=== PATIENT | female | born 1955 | race American Indian/Alaskan Native ===

== ENCOUNTER 2019-12-08 12:50 | Emergency (ER) | payer MEDICARE, OTHER ==
[2019-12-08 13:02] VITALS: BP 165/73
--- NOTE | 2019-12-08 13:30 | Emergency Department Report ---
Chief Complaint: Hyperglycemia Stated Complaint: BP HIGH, SUGAR Time Seen by Provider: 12/08/19 13:21 - HPI History of Present Illness: 64-year-old -French female brought in by son concern for elevated blood sugar and elevated blood pressure for a week. Patient's caregiver reports that she recently has a urinary tract infection and has been placed on Cipro for the last 2 days by her primary care provider do a telemedicine appointment. Caregiver is concerned that her blood sugar this morning was 178. She is currently taking metformin and insulin. Is also concern for her blood pressure that was 178/93. She takes her medications as prescribed. She does have a history of diabetes hypertension congestive heart failure GERD had 2 stents replaced hysterectomy a CVA with weakness in the right and right arm and leg and speech impairment. Patient reports that she gets constipated will often have to use a suppository to help. Family denies any recent falls no unusual weaknesses no fever no chills no COVID contact. - Exam Vital Signs: Vital Signs 12/08/19 12:53 Temperature 99.2 F Pulse Rate 81 Respiratory 20 Rate Blood Pressure 165/73 O2 Sat by Pulse 95 Oximetry Physical Exam: Gen: alert oriented NAD Cardic: regular rate and rhythm no murmurs appreciated Resp: Clear to auscultation bilateral no wheezing no rales or rhonchi. Abdomen: Soft nontender nondistended normal bowel sounds. MSE screening note: Focused history and physical exam performed. Due to findings the following was ordered: 64-year-old -French female brought in by son concern for elevated blood sugar and elevated blood pressure for a week. Patient's caregiver reports that she recently has a urinary tract infection and has been placed on Cipro for the last 2 days by her primary care provider do a telemedicine appointment. Caregiver is concerned that her blood sugar this morning was 178. She is currently taking metformin and insulin. Is also concern for her blood pressure that was 178/93. She takes her medications as prescribed. She does have a history of diabetes hypertension congestive heart failure GERD had 2 stents replaced hysterectomy a CVA with weakness in the right and right arm and leg and speech impairment. Patient reports that she gets constipated will often have to use a suppository to help. Family denies any recent falls no unusual weaknesses no fever no chills no COVID contact. Discussed with caregiver to add MiraLAX to her diet set goals to drink water 4 ounces every hour within a 30-minute TV show. Increase her fiber intake. Encourage her to void as much as possible. Avoid sodas tea coffee with sugar. Ambulate as much as possible. Follow-up with her primary care provider in the next 3 to 5 days. Return back to the emergency room if any worsening concerns. ED Disposition for MSE Disposition: MED SCREENING EXAM-LEFT Is pt being admited?: No Does the pt Need Aspirin: No Condition: Stable Additional Instructions: Discussed with caregiver to add MiraLAX to her diet set goals to drink water 4 ounces every hour within a 30-minute TV show. Increase her fiber intake. Encourage her to void as much as possible. Avoid sodas tea coffee with sugar. Ambulate as much as possible. Follow-up with her primary care provider in the next 3 to 5 days. Return back to the emergency room if any worsening concerns. Referrals: JEFFY HARRISON III, NANO-DANILO [Referring] - 3-5 Days Forms: Accompanied Note
== END 2019-12-08 13:33 | disposition left against medical advice (07) ==
LOC: ED 12:50
DX: E11.65 Type 2 diabetes mellitus with hyperglycemia (principal); I10 Essential (primary) hypertension; Z53.21 Procedure and treatment not carried out due to patient leaving prior to being seen by health care provider
CPT/HCPCS: 82962

== ENCOUNTER 2020-04-02 07:10 | Inpatient (IN) | payer MEDICARE, OTHER ==
--- NOTE | 2020-04-02 12:24 | XRay Report ---
CHEST 2 VIEWS INDICATION: sob,cough and rales. COMPARISON: 03/25/2014. FINDINGS: Support devices: None. Heart: Within normal limits. Lungs/Pleura: No acute air space or interstitial disease. No significant pleural effusion. IMPRESSION: No acute findings. Signer Name: Saran Duron MD Signed: 04/02/2020 12:19 PM Workstation Name: [employer]
[2020-04-02 12:28] LABS: Basophils # (Auto) 0.1 K/mm3 (0.0-0.1); Basophils % (Auto) 1.2 % (0.0-1.8); Eosinophils # (Auto) 0.1 K/mm3 (0.0-0.4); Eosinophils % (Auto) 0.8 % (0.0-4.3); Hematocrit 30.3 % (30.3-42.9); Lymphocytes # (Auto) 1.4 K/mm3 (1.2-5.4); Lymphocytes % (Auto) 15.4 % (13.4-35.0); Mean Corpuscular HGB Conc 33 % (30-34); Mean Corpuscular Volume 86 fl (79-97); Monocytes # (Auto) 0.8 K/mm3 (0.0-0.8); Monocytes % (Auto) 9.2 % (0.0-7.3); Platelet Count 266 K/mm3 (140-440); Red Blood Count 3.53 M/mm3 (3.65-5.03); Red Cell Distribution Width 14.7 % (13.2-15.2)
[2020-04-02] MEDS ORDERED: IPRATROPIUM/ALBUTEROL SULFATE 3 ML AMPUL.NEB IH ONE (12:41)
[2020-04-02] MEDS ORDERED: ONDANSETRON 4 MG/2 ML INJ IV ONE (12:41)
[2020-04-02] MEDS ORDERED: methylPREDNISolone Sod Succinate 125 MG/2 ML INJ IV ONE (12:41)
[2020-04-02] MEDS ORDERED: hydrALAZINE 20 MG/1 ML INJ IV ONE (12:42)
--- NOTE | 2020-04-02 13:08 | Emergency Department Report ---
HPI - General Chief Complaint: Dyspnea/Respdistress Time Seen by Provider: 04/02/20 11:54 - HPI HPI: This is a 64-year-old female presents to the emergency department with a complaint of a 1 week history of some intermittent shortness of breath, coughing and wheezing. Patient says that she will have some midsternal chest pain when she coughs. She denies any fever, back pain, diarrhea, rash. She does admit to some swelling of the bilateral feet, nausea with one episode of vomiting. The patient saw her PCP yesterday, Dr. Aftab Holden, and was placed on an albuterol inhaler, which she has been using with only transient relief. She has a past medical history that includes hypertension, [id number] diabetes, GERD, coronary artery disease with previous stents, CVA with residual right-sided weakness and some speech impairment. No recent travel or sick contacts at home. No known exposure to anyone with COVID-19. ED Past Medical Hx - Past Medical History Hx Hypertension: Yes Hx CVA: Yes (Rt arm and leg weakness, speech impairment) Hx Heart Attack/AMI: No Hx Congestive Heart Failure: No Hx Diabetes: Yes Hx Deep Vein Thrombosis: No Hx Pulmonary Embolism: No Hx GERD: Yes Hx Liver Disease: No Hx Renal Disease: No Hx Sickle Cell Disease: No Hx Arthritis: No Hx Seizures: No Hx Kidney Stones: No Hx Asthma: No Hx COPD: No Hx Tuberculosis: No Hx Dementia: No Hx HIV: No - Surgical History Hx Coronary Stent: Yes (X2) Hx Open Heart Surgery: No Hx Pacemaker: No Hx Internal Defibrillator: No Hx Cholecystectomy: No Hx Appendectomy: No Hx Breast Surgery: No Additional Surgical History: Hysterectomy - Social History Smoking Status: Never Smoker Substance Use Type: None - Medications Home Medications: Home Medications Medication Instructions Recorded Confirmed Last Taken Type Aspirin 325 mg PO DAILY 07/04/14 07/08/14 07/08/14 05:00 History Clopidogrel Bisulfate [Plavix] 75 mg PO DAILY 07/04/14 07/08/14 07/08/14 05:00 History Fesoterodine Fumarate [Toviaz] 4 mg PO DAILY 07/04/14 07/08/14 07/08/14 05:00 History Furosemide [Lasix TAB] 20 mg PO DAILY 07/04/14 07/08/14 07/08/14 05:00 History Metformin HCl [metFORMIN ER] 500 mg PO BID 07/04/14 07/08/14 07/06/14 History Omeprazole [PriLOSEC] 20 mg PO DAILY 07/04/14 07/08/14 07/08/14 05:00 History Pravastatin Sodium [Pravastatin] 10 mg PO DAILY 07/04/14 07/08/14 07/08/14 05:00 History Sertraline [Zoloft] 25 mg PO DAILY 07/04/14 07/08/14 07/08/14 05:00 History carvediloL [Coreg] 12.5 mg PO BID 07/04/14 07/08/14 07/08/14 05:00 History glipiZIDE [glipiZIDE XL] 10 mg PO DAILY 07/04/14 07/08/14 07/08/14 05:00 History lisinopriL [Lisinopril] 10 mg PO BID 07/08/14 07/08/14 07/08/14 05:00 History HYDROcodone/ACETAMINOPHEN [[place] 1 each PO Q6HR PRN #30 tablet 07/09/14 Unknown Rx 7.5-325 mg TAB] ED Review of Systems ROS: Stated complaint: BREN Other details as noted in HPI Comment: All other systems reviewed and negative Constitutional: denies: chills, fever Eyes: denies: eye pain, vision change ENT: denies: ear pain, throat pain Respiratory: cough, shortness of breath, wheezing Cardiovascular: edema (feet). denies: palpitations Gastrointestinal: nausea, vomiting. denies: abdominal pain Genitourinary: denies: dysuria, discharge Musculoskeletal: denies: back pain, arthralgia Skin: denies: rash, lesions Neurological: denies: headache, weakness Physical Exam - Physical Exam Vital Signs: Vital Signs 04/02/20 04/02/20 04/02/20 07:25 07:29 12:33 Temperature 97.1 F L Pulse Rate 92 H Respiratory 24 26 H Rate Blood Pressure 188/81 O2 Sat by Pulse 95 96 Oximetry Physical Exam: GENERAL: The patient is well-developed well-nourished. HENT: Normocephalic. Atraumatic. Patient has moist mucous membranes. EYES: Extraocular motions are intact. NECK: Supple. Trachea is midline. CHEST/LUNGS: Coarse breath sounds. There is tachypnea with some conversational dyspnea. HEART/CARDIOVASCULAR: Regular. There is no tachycardia. There is no murmur. ABDOMEN: Abdomen is soft, nontender. Patient has normal bowel sounds. Obese habitus. SKIN: Skin is warm and dry. There is some mild bilateral lower extremity nonpitting swelling. NEURO: The patient is awake, alert, and oriented. The patient is cooperative. Chronic right-sided weakness. Normal speech. MUSCULOSKELETAL: There is no tenderness or deformity. ED Course Vital Signs 04/02/20 04/02/20 04/02/20 07:25 07:29 12:33 Temperature 97.1 F L Pulse Rate 92 H Respiratory 24 26 H Rate Blood Pressure 188/81 O2 Sat by Pulse 95 96 Oximetry - Reevaluation(s) Reevaluation #1: 04/02/20 16:11 Lab Results 04/02/20 04/02/20 04/02/20 Range/Units 11:48 11:48 14:17 WBC 9.0 (4.5-11.0) K/mm3 RBC 3.53 L (3.65-5.03) M/mm3 Hgb 10.0 L (10.1-14.3) gm/dl Hct 30.3 (30.3-42.9) % MCV 86 (79-97) fl MCH 28 (28-32) pg MCHC 33 (30-34) % RDW 14.7 (13.2-15.2) % Plt Count 266 (140-440) K/mm3 Lymph % (Auto) 15.4 (13.4-35.0) % [place] % (Auto) 9.2 H (0.0-7.3) % Eos % (Auto) 0.8 (0.0-4.3) % Baso % (Auto) 1.2 (0.0-1.8) % Lymph # (Auto) 1.4 (1.2-5.4) K/mm3 [place] # (Auto) 0.8 (0.0-0.8) K/mm3 Eos # (Auto) 0.1 (0.0-0.4) K/mm3 Baso # (Auto) 0.1 (0.0-0.1) K/mm3 Seg Neutrophils % 73.4 H (40.0-70.0) % Seg Neutrophils # 6.6 (1.8-7.7) K/mm3 Sodium TNR Potassium TNR Chloride TNR Carbon Dioxide TNR Anion Gap TNR BUN TNR Creatinine TNR Estimated GFR TNR BUN/Creatinine Ratio TNR Glucose TNR Calcium TNR Total Bilirubin TNR AST TNR ALT TNR Alkaline Phosphatase TNR Troponin T < 0.010 (0.00-0.029) ng/mL NT-Pro-B Natriuret Pep 1391 H (0-900) pg/mL Total Protein TNR Albumin TNR Albumin/Globulin Ratio TNR 04/02/20 Range/Units 14:17 WBC (4.5-11.0) K/mm3 RBC (3.65-5.03) M/mm3 Hgb (10.1-14.3) gm/dl Hct (30.3-42.9) % MCV (79-97) fl MCH (28-32) pg MCHC (30-34) % RDW (13.2-15.2) % Plt Count (140-440) K/mm3 Lymph % (Auto) (13.4-35.0) % [place] % (Auto) (0.0-7.3) % Eos % (Auto) (0.0-4.3) % Baso % (Auto) (0.0-1.8) % Lymph # (Auto) (1.2-5.4) K/mm3 [place] # (Auto) (0.0-0.8) K/mm3 Eos # (Auto) (0.0-0.4) K/mm3 Baso # (Auto) (0.0-0.1) K/mm3 Seg Neutrophils % (40.0-70.0) % Seg Neutrophils # (1.8-7.7) K/mm3 Sodium 142 Potassium 4.6 Chloride 102.0 Carbon Dioxide 29 Anion Gap 16 BUN 19 H Creatinine 1.0 Estimated GFR > 60 BUN/Creatinine Ratio 19 Glucose 91 Calcium 9.4 Total Bilirubin 0.30 AST 22 ALT 16 Alkaline Phosphatase 104 Troponin T (0.00-0.029) ng/mL NT-Pro-B Natriuret Pep (0-900) pg/mL Total Protein 7.5 Albumin 3.6 L Albumin/Globulin Ratio 0.9 ED Medical Decision Making - Lab Data Result diagrams: 04/02/20 11:48 04/02/20 14:17 - EKG Data -: EKG Interpreted by Me EKG shows normal: sinus rhythm, axis, intervals, QRS complexes, ST-T waves Rate: normal - EKG Data When compared to previous EKG there are: previous EKG unavailable Interpretation: normal EKG - Radiology Data Radiology results: image reviewed interpreted by me: Chest x-ray does not show any acute process. There are no pleural effusions, ob vious pneumonia and there is no pneumothorax. No significant cardiomegaly. - Medical Decision Making This patient presents to the emergency department with a 1 week history of progressively worsening shortness of breath, wheezing, intermittent chest tightness, and the patient complains of some mild bilateral lower extremity swelling, mostly in the feet. On examination the patient has some coarse breath sounds, tachypnea and conversational dyspnea. There is some mild nonpitting swelling to the bilateral lower extremities. EKG did not have any morphology consistent with ST elevation myocardial infarction. Chest x-ray did not show any pneumonia, obvious pleural effusions, or any pneumothorax. Patient's labs shows elevated BNP of about 1300, without any renal in sufficiency. This is concerning for acute or new onset CHF. Patient has been given Solu-Medrol, breathing treatments, IV Lasix for diuresis. The patient also presented with extremely elevated blood pressure with a systolic greater than 200. She was given a dose of IV antihypertensive medication and it has come down to a more reasonable level. Despite the treatments, the patient continues to have tachypnea and some mild hypoxia with a pulse ox between 92 to 94%. The patient does not have any COPD history and is not oxygen dependent at home. She will be admitted to the hospital for further evaluation and treatment was accepted for admission by the hospitalist, Dr. Rocha. Critical Care Time: No Critical care attestation.: If time is entered above; I have spent that time in minutes in the direct care of this critically ill patient, excluding procedure time. ED Disposition Clinical Impression: New onset of congestive heart failure, Hypertensive urgency Dyspnea Qualifiers: Dyspnea type: shortness of breath Qualified Code(s): R06.02 - Shortness of breath; R06.00 - Dyspnea, unspecified; R06.01 - Orthopnea Disposition: OP ADMIT IP TO THIS HOSP Is pt being admited?: Yes Condition: Fair Time of Disposition: 16:15
[2020-04-02] MEDS ORDERED: SODIUM POLYSTYRENE 15 GM/60 ML ORAL LIQD PO ONE (14:01)
[2020-04-02 14:12] LABS: Blood Urea Nitrogen TNR mg/dL (7-17)
[2020-04-02 14:13] LABS: Alanine Aminotransferase TNR units/L (7-56); Calcium TNR mg/dL (8.4-10.2)
[2020-04-02 14:14] LABS: Albumin TNR g/dL (3.9-5); Hemolysis Index TNR
[2020-04-02 14:15] LABS: BUN/Creatinine Ratio TNR
[2020-04-02 15:31] LABS: Alanine Aminotransferase 16 units/L (7-56); Albumin 3.6 g/dL (3.9-5); BUN/Creatinine Ratio 19; Blood Urea Nitrogen 19 mg/dL (7-17); Calcium 9.4 mg/dL (8.4-10.2); Hemolysis Index 14
[2020-04-02] MEDS ORDERED: FUROSEMIDE 20 MG/2 ML INJ IV ONE (15:52)
--- NOTE | 2020-04-02 16:26 | History and Physical Report ---
History of Present Illness Chief complaint: I get short of breath real easy History of present illness: 64 YO Female with HTN, CVA with RHP and Dysarthria on DAPT, DM, GERD, CAD S/P Stent Placement presents to ED for evaluation. Patient states that she has experienced shortness of breath over the past 1 week with persistently worsening symptoms over the same timeframe. Patient acknowledges leg swelling, orthopnea, paroxysmal nocturnal dyspnea, decreased exercise tolerance, as well as chest discomfort. Patient transported to [facility] via private vehicle for further care and evaluation of the aforementioned symptoms. Patient seen and evaluated in the emergency department. All lab and imaging studies reviewed. Patient found to have clinical symptoms consistent with new onset CHF with decompensation, as well as hypertensive urgency with a blood pressure of 225/80. Patient initiated on antihypertensive therapy and admitted to telemetry and initiated on CHF protocol. Cardiology team consulted in ED. Patient denies fever, chills, chest pain, palpitations, productive cough, skin rash, recent ill contacts, or known exposure to COVID-19. No prior admission for review. All medication listed at time of admission has been reconciled. Advanced care planning conducted in ED. Past History Past Medical History: CAD, diabetes, hypertension, stroke, other (See HPI) Past Surgical History: hysterectomy, Other (Cardiac stent placement) Social history: . denies: smoking, alcohol abuse Family history: diabetes, hypertension Medications and Allergies Allergies Allergy/AdvReac Type Severity Reaction Status Date / Time codeine Allergy Intermediate Itching Verified 04/02/20 07:20 Home Medications Medication Instructions Recorded Confirmed Last Taken Type Aspirin 81 mg PO DAILY 07/04/14 04/02/20 04/01/20 History Furosemide [Lasix TAB] 20 mg PO DAILY 07/04/14 04/02/20 04/01/20 History Metformin HCl [metFORMIN ER] 500 mg PO BID 07/04/14 04/02/20 04/01/20 History Omeprazole [PriLOSEC] 40 mg PO DAILY 07/04/14 04/02/20 04/01/20 History Sertraline [Zoloft] 25 mg PO DAILY 07/04/14 04/02/20 04/01/20 History carvediloL [Coreg] 12.5 mg PO BID 07/04/14 04/02/20 04/01/20 History glipiZIDE [glipiZIDE XL] 10 mg PO DAILY 07/04/14 04/02/20 04/01/20 History lisinopriL [Lisinopril] 20 mg PO BID 07/08/14 04/02/20 04/01/20 History Ferrous Sulfate [Iron 325 MG] 325 mg PO DAILY 04/02/20 04/02/20 04/01/20 History Insulin Glargine [Lantus VIAL] 24 unit SUB-Q QHS 04/02/20 04/02/20 04/01/20 His tory Mirabegron [Myrbetriq] 50 mg PO QDAY 04/02/20 04/02/20 04/01/20 History amLODIPine [Norvasc] 10 mg PO DAILY 04/02/20 04/02/20 Unknown History Review of Systems Constitutional: no weight loss, no weight gain, no fever, no chills Ears, nose, mouth and throat: no ear pain, no ear discharge, no tinnitis, no decreased hearing, no nose pain Breasts: no change in shape, no swelling, no mass Cardiovascular: orthopnea, edema, shortness of breath, dyspnea on exertion, paroxysmal nocturnal dyspnea, leg edema, decreased exercise tolerance, no chest pain, no palpitations, no rapid/irregular heart beat Respiratory: no cough, no cough with sputum, no excessive sputum Gastrointestinal: no abdominal pain, no nausea, no vomiting, no diarrhea Genitourinary Female: no pelvic pain, no flank pain, no dysuria, no urinary frequency, no urgency Rectal: no pain, no incontinence, no bleeding Musculoskeletal: no neck stiffness, no neck pain, no arm numbness/tingling, no shooting leg pain Integumentary: no rash, no pruritis, no redness, no sores, no wounds Neurological: no head injury, no transient paralysis, no paralysis, no weakness, no numbness, no tingling Psychiatric: no anxiety, no memory loss, no change in sleep habits, no insomnia, no hypersomnia, no change in libido Endocrine: no cold intolerance, no heat intolerance, no excessive thirst, no polyuria Hematologic/Lymphatic: no easy bruising, no easy bleeding, no lymphadenopathy Allergic/Immunologic: no urticaria, no allergic rhinitis, no wheezing, no persistent infections, no anaphylaxis Exam - Constitutional Vitals: Temp Pulse Resp BP Pulse Ox 97.1 F L 97 H 31 H 167/70 93 04/02/20 07:29 04/02/20 15:31 04/02/20 15:31 04/02/20 15:31 04/02/20 15:31 General appearance: Present: mild distress, obese - EENT Eyes: Present: PERRL ENT: hearing intact, clear oral mucosa - Neck Neck: Present: supple, normal ROM - Respiratory Respiratory effort: normal Respiratory: bilateral: diminished, rales - Cardiovascular Heart Sounds: Present: S1 & S2. Absent: rub, click - Extremities Extremities: pulses symmetrical Extremity abnormal: edema Peripheral Pulses: within normal limits - Abdominal General gastrointestinal: Present: soft, non-tender, non-distended, normal bowel sounds Female genitourinary: Present: normal - Integumentary Integumentary: Present: clear, warm, dry - Musculoskeletal Musculoskeletal: gait normal, strength equal bilaterally - Psychiatric Psychiatric: appropriate mood/affect, intact judgment & insight - Neurologic Neurologic: CNII-XII intact, moves all extremities HEART Score - HEART Score Troponin: Troponin T < 0.010 ng/mL (0.00-0.029) 04/02/20 14:17 Results - Labs CBC & Chem 7: 04/02/20 11:48 04/02/20 14:17 Labs: Abnormal lab results 04/02/20 04/02/20 04/02/20 Range/Units 11:48 14:17 14:17 RBC 3.53 L (3.65-5.03) M/mm3 Hgb 10.0 L (10.1-14.3) gm/dl [place] % (Auto) 9.2 H (0.0-7.3) % Seg Neutrophils % 73.4 H (40.0-70.0) % BUN 19 H (7-17) mg/dL NT-Pro-B Natriuret Pep 1391 H (0-900) pg/mL Albumin 3.6 L (3.9-5) g/dL Assessment and Plan - Patient Problems (1) New onset of congestive heart failure Current Visit: Yes Status: Acute Plan to address problem: CHF protocol: Strict I/O, monitor urine output every shift, daily weight, afterload reduction, blood pressure control, echocardiogram ordered and is pending at time of admission, thyroid panel, magnesium level, supplemental oxygen. (2) Obesity hypoventilation syndrome Current Visit: Yes Status: Acute Plan to address problem: Balanced diet, increase physical activity at discharge, supplemental oxygen, noninvasive positive pressure ventilation as clinically indicated, outpatient pulmonary follow-up for sleep study. (3) Hypertensive urgency Current Visit: Yes Status: Acute Plan to address problem: Monitor blood pressure every shift, continue medical management, resume prehospital antihypertensive therapy, (4) DVT prophylaxis Current Visit: No Status: Acute Plan to address problem: SCD to bilateral lower extremities while in bed, patient is ambulatory. (5) Advance care planning Current Visit: Yes Status: Acute Plan to address problem: Disease education conducted, patient is full code, care plan discussed, prognosis discussed, patient knowledges understanding and agreement with care plan, +30 minutes.
[2020-04-02] MEDS ORDERED: ONDANSETRON 4 MG/2 ML INJ IV PRN (16:28)
[2020-04-02] MEDS ORDERED: ACETAMINOPHEN 325 MG TAB PO PRN (16:28)
[2020-04-02] MEDS ORDERED: ALBUTEROL 2.5 MG/3 ML NEBU IH PRN (16:28)
[2020-04-02] MEDS: FUROSEMIDE 20 MG/2 ML INJ IV SCH (17:32)
[2020-04-02] MEDS: amLODIPine 10 MG TAB PO SCH (19:18)
[2020-04-02] MEDS ORDERED: carvediloL 12.5 MG TAB PO STA (20:31)
[2020-04-02] MEDS ORDERED: carvediloL 6.25 MG TAB ONE (20:33)
[2020-04-02] MEDS ORDERED: carvediloL 3.125 MG TAB ONE (20:33)
[2020-04-02] MEDS: LISINOPRIL 20 MG TAB PO SCH (20:37)
[2020-04-02] MEDS ORDERED: carvediloL 12.5 MG TAB PO SCH (22:00)
[2020-04-02] MEDS ORDERED: LISINOPRIL 10 MG TAB PO SCH (22:00)
[2020-04-02] MEDS: HYDROcodone/ACETAMINOPHEN 7.5-325MG TAB PO PRN (22:26)
[2020-04-02] MEDS: carvediloL 12.5 MG TAB PO SCH (22:27)
[2020-04-02] MEDS: PRAVASTATIN 20 MG TAB PO SCH (22:27)
[2020-04-02] MEDS: INSULIN GLARGINE 100 UNITS/ML SUB-Q SCH (22:33)
[2020-04-03 06:26] LABS: Basophils # (Auto) 0.1 K/mm3 (0.0-0.1); Basophils % (Auto) 0.7 % (0.0-1.8); Hematocrit 27.4 % (30.3-42.9); Lymphocytes # (Auto) 1.1 K/mm3 (1.2-5.4); Lymphocytes % (Auto) 12.5 % (13.4-35.0); Mean Corpuscular HGB Conc 33 % (30-34); Mean Corpuscular Volume 86 fl (79-97); Monocytes # (Auto) 0.4 K/mm3 (0.0-0.8); Monocytes % (Auto) 5.1 % (0.0-7.3); Platelet Count 265 K/mm3 (140-440); Red Blood Count 3.18 M/mm3 (3.65-5.03); Red Cell Distribution Width 14.9 % (13.2-15.2)
[2020-04-03 06:27] LABS: BUN/Creatinine Ratio 20; Blood Urea Nitrogen 22 mg/dL (7-17); Calcium 9.1 mg/dL (8.4-10.2); Hemolysis Index 5
[2020-04-03] MEDS: FUROSEMIDE 20 MG/2 ML INJ IV SCH (07:31)
[2020-04-03] MEDS ORDERED: FESOTERODINE FUMARATE 4 MG PO SCH (10:00)
[2020-04-03] MEDS ORDERED: NON-FORMULARY EACH (Pravastatin Sodium [Pravastatin] 10 MG) PO SCH (10:00)
[2020-04-03] MEDS ORDERED: NON-FORMULARY EACH (Omeprazole [Prilosec] 20 MG) PO SCH (10:00)
[2020-04-03] MEDS ORDERED: NON-FORMULARY EACH (Mirabegron [Myrbetriq] 50 MG) PO SCH (10:00)
[2020-04-03] MEDS: ASPIRIN 325 MG TAB PO SCH (10:39)
[2020-04-03] MEDS: CLOPIDOGREL 75 MG TAB PO SCH (10:40)
[2020-04-03] MEDS: FERROUS SULFATE 325 MG TAB PO SCH (10:40)
[2020-04-03] MEDS: amLODIPine 10 MG TAB PO SCH (10:40)
[2020-04-03] MEDS: PANTOPRAZOLE 20 MG TAB PO SCH (10:40)
[2020-04-03] MEDS: carvediloL 12.5 MG TAB PO SCH ×2 (10:41→22:11)
[2020-04-03] MEDS: LISINOPRIL 20 MG TAB PO SCH (10:41)
[2020-04-03] MEDS: SERTRALINE 25 MG TAB PO SCH (10:41)
--- NOTE | 2020-04-03 11:28 | Consultation ---
<ANGELICA HINOJOSA - Last Filed: 04/03/20 11:43> History of Present Illness Consult date: 04/03/20 Consult reason: congestive heart failure History of present illness: This is a 64-year old F with a history of hypertension, prior CVA with right sided residual, diabetes and carotid stenosis. She also has a history of multi- vessel coronary artery disease. Serial echocardiogram shows a normal left ventricular systolic function, ejection fraction 60%. Patient presents to this hospital and admitted with shortness of breath, wheezing and cough. Patient denies fever. There is no chest pain, no palpitation or no lower extremity edema. Chest x-ray is negative. ECG is sinus rhythm with non-specific T wave abnormalities. Past History Past Medical History: CAD, diabetes, hypertension, stroke Past Surgical History: hysterectomy Social history: . denies: smoking, alcohol abuse Family history: diabetes, hypertension Medications and Allergies Allergies Allergy/AdvReac Type Severity Reaction Status Date / Time codeine Allergy Intermediate Itching Verified 04/02/20 07:20 Home Medications Medication Instructions Recorded Confirmed Last Taken Type Aspirin 81 mg PO DAILY 07/04/14 04/02/20 04/01/20 History Furosemide [Lasix TAB] 20 mg PO DAILY 07/04/14 04/02/20 04/01/20 History Metformin HCl [metFORMIN ER] 500 mg PO BID 07/04/14 04/02/20 04/01/20 History Omeprazole [PriLOSEC] 40 mg PO DAILY 07/04/14 04/02/20 04/01/20 History Sertraline [Zoloft] 25 mg PO DAILY 07/04/14 04/02/20 04/01/20 History carvediloL [Coreg] 12.5 mg PO BID 07/04/14 04/02/20 04/01/20 History glipiZIDE [glipiZIDE XL] 10 mg PO DAILY 07/04/14 04/02/20 04/01/20 History lisinopriL [Lisinopril] 20 mg PO BID 07/08/14 04/02/20 04/01/20 History Ferrous Sulfate [Iron 325 MG] 325 mg PO DAILY 04/02/20 04/02/20 04/01/20 History Insulin Glargine [Lantus VIAL] 24 unit SUB-Q QHS 04/02/20 04/02/20 04/01/20 History Mirabegron [Myrbetriq] 50 mg PO QDAY 04/02/20 04/02/20 04/01/20 History amLODIPine [Norvasc] 10 mg PO DAILY 04/02/20 04/02/20 Unknown History Active Meds: Active Medications Acetaminophen (Tylenol) 650 mg PO Q4H PRN PRN Reason: Pain MILD(1-3)/Fever >100.5/GREY Hydrocodone Bitart/Acetaminophen ([place] 7.5/325) 1 each PO Q6HR PRN PRN Reason: Pain, Moderate (4-6) Last Admin: 04/02/20 22:26 Dose: 1 each Documented by: Albuterol (Proventil) 2.5 mg IH Q4HRT PRN PRN Reason: Shortness Of Breath Amlodipine Besylate (Amlodipine) 10 mg PO DAILY [facility] Last Admin: 04/03/20 10:40 Dose: 10 mg Documented by: Aspirin (Aspirin) 325 mg PO DAILY [facility] Last Admin: 04/03/20 10:39 Dose: 325 mg Documented by: Carvedilol (Coreg) 12.5 mg PO BID [facility] Last Admin: 04/03/20 10:41 Dose: 12.5 mg Documented by: Clopidogrel Bisulfate (Plavix) 75 mg PO DAILY [facility] Last Admin: 04/03/20 10:40 Dose: 75 mg Documented by: Ferrous Sulfate (Feosol) 325 mg PO DAILY [facility] Last Admin: 04/03/20 10:40 Dose: 325 mg Documented by: Furosemide (Lasix) 20 mg IV BID@0600,1800 [facility] Last Admin: 04/03/20 07:31 Dose: 20 mg Documented by: Insulin Glargine (Lantus) 24 units SUB-Q QHS [facility] Last Admin: 04/02/20 22:33 Dose: 24 units Documented by: Lisinopril (Zestril) 20 mg PO QDAY [facility] Last Admin: 04/03/20 10:41 Dose: 20 mg Documented by: Miscellaneous Medication (Fesoterodine Fumarate [Toviaz]) 4 mg PO DAILY [facility] Miscellaneous Medication (Mirabegron [Myrbetriq]) 50 mg PO QDAY [facility] Ondansetron HCl (Zofran) 4 mg IV Q8H PRN PRN Reason: Nausea And Vomiting Pantoprazole Sodium (Protonix) 20 mg PO QDAY [facility] Last Admin: 04/03/20 10:40 Dose: 20 mg Documented by: Pravastatin Sodium (Pravachol) 10 mg PO QHS [facility] Last Admin: 04/02/20 22:27 Dose: 10 mg Documented by: Sertraline HCl (Zoloft) 25 mg PO DAILY [facility] Last Admin: 04/03/20 10:41 Dose: 25 mg Documented by: Sodium Chloride (Sodium Chloride Flush Syringe 10 Ml) 10 ml IV BID [facility] Last Admin: 04/03/20 10:42 Dose: 10 ml Documented by: Sodium Chloride (Sodium Chloride Flush Syringe 10 Ml) 10 ml IV PRN PRN PRN Reason: LINE FLUSH Review of Systems Cardiovascular: no chest pain, no palpitations, no edema Respiratory: cough, shortness of breath, congestion, wheezing Physical Examination Vital Signs Pulse Resp BP Pulse Ox 92 H 24 188/81 95 04/02/20 07:25 04/02/20 07:25 04/02/20 07:25 04/02/20 07:25 General appearance: no acute distress HEENT: Positive: PERRL Neck: Positive: trachea midline Cardiac: Positive: Reg Rate and Rhythm Lungs: Positive: Decreased Breath Sounds, Wheezes Neuro: Positive: Weakness (with right sided residual) Extremities: Absent: edema Results 04/03/20 04:00 04/03/20 04:00 Cardiac Enzymes 04/02/20 04/02/20 Range/Units 11:48 14:17 AST TNR 22 CBC 04/02/20 04/03/20 Range/Units 11:48 04:00 WBC 9.0 8.5 (4.5-11.0) K/mm3 RBC 3.53 L 3.18 L (3.65-5.03) M/mm3 Hgb 10.0 L 9.0 L (10.1-14.3) gm/dl Hct 30.3 27.4 L (30.3-42.9) % Plt Count 266 265 (140-440) K/mm3 Lymph # (Auto) 1.4 1.1 L (1.2-5.4) K/mm3 Long # (Auto) 0.8 0.4 (0.0-0.8) K/mm3 Eos # (Auto) 0.1 0.0 (0.0-0.4) K/mm3 Baso # (Auto) 0.1 0.1 (0.0-0.1) K/mm3 Comprehensive Metabolic Panel 04/02/20 04/02/20 04/03/20 Range/Units 11:48 14:17 04:00 Sodium TNR 142 137 Potassium TNR 4.6 4.2 Chloride TNR 102.0 97.5 L Carbon Dioxide TNR 29 33 H BUN TNR 19 H 22 H Creatinine TNR 1.0 1.1 Glucose TNR 91 208 H Calcium TNR 9.4 9.1 AST TNR 22 ALT TNR 16 Alkaline Phosphatase TNR 104 Total Protein TNR 7.5 Albumin TNR 3.6 L Assessment and Plan Shortness of breath with active wheezing and cough echo this presentation reports normal LVEF 55-60% Hx of CAD Hx of Carotid stenosis with prior right CEA Essential Hypertension Prior CVA Recommendations: Resume medical therapy for coronary artery disease. Defer to pulmonary for management of the patient's shortness of breath, wheezing and cough. <SHERICE ANDRADE - Last Filed: 04/04/20 12:43> History of Present Illness History of present illness: I SAW THIS PT & AGREE WITH THE Dx & Tx PLAN. Medications and Allergies Active Meds: Active Medications Acetaminophen (Tylenol) 650 mg PO Q4H PRN PRN Reason: Pain MILD(1-3)/Fever >100.5/GREY Hydrocodone Bitart/Acetaminophen ([place] 7.5/325) 1 each PO Q6HR PRN PRN Reason: Pain, Moderate (4-6) Last Admin: 04/02/20 22:26 Dose: 1 each Documented by: Albuterol (Albuterol 2.5 Mg/3 Ml Nebu) 2.5 mg IH Q6HRT [facility] Last Admin: 04/04/20 08:56 Dose: 2.5 mg Documented by: Amlodipine Besylate (Amlodipine) 10 mg PO DAILY [facility] Last Admin: 04/04/20 09:08 Dose: 10 mg Documented by: Aspirin (Aspirin) 325 mg PO DAILY [facility] Last Admin: 04/04/20 09:07 Dose: 325 mg Documented by: Carvedilol (Coreg) 12.5 mg PO BID [facility] Last Admin: 04/04/20 09:07 Dose: 12.5 mg Documented by: Clopidogrel Bisulfate (Plavix) 75 mg PO DAILY [facility] Last Admin: 04/04/20 09:07 Dose: 75 mg Documented by: Ferrous Sulfate (Feosol) 325 mg PO DAILY [facility] Last Admin: 04/04/20 09:07 Dose: 325 mg Documented by: Insulin Glargine (Lantus) 24 units SUB-Q QHS [facility] Last Admin: 04/03/20 22:12 Dose: 24 units Documented by: Lisinopril (Zestril) 20 mg PO QDAY [facility] Last Admin: 04/04/20 09:08 Dose: 20 mg Documented by: Miscellaneous Medication (Fesoterodine Fumarate [Toviaz]) 4 mg PO DAILY [facility] Miscellaneous Medication (Mirabegron [Myrbetriq]) 50 mg PO QDAY [facility] Ondansetron HCl (Zofran) 4 mg IV Q8H PRN PRN Reason: Nausea And Vomiting Pantoprazole Sodium (Pantoprazole 20 Mg Tab) 20 mg PO QDAC [facility] Pravastatin Sodium (Pravachol) 10 mg PO QHS [facility] Last Admin: 04/03/20 22:11 Dose: 10 mg Documented by: Prednisone (Prednisone 20 Mg Tab) 40 mg PO QDAY [facility] Last Admin: 04/04/20 09:08 Dose: 40 mg Documented by: Sertraline HCl (Zoloft) 25 mg PO DAILY [facility] Last Admin: 04/04/20 09:07 Dose: 25 mg Documented by: Sodium Chloride (Sodium Chloride Flush Syringe 10 Ml) 10 ml IV BID [facility] Last Admin: 04/04/20 09:09 Dose: 10 ml Documented by: Sodium Chloride (Sodium Chloride Flush Syringe 10 Ml) 10 ml IV PRN PRN PRN Reason: LINE FLUSH Physical Examination Vital Signs Pulse Resp BP Pulse Ox 92 H 24 188/81 95 04/02/20 07:25 04/02/20 07:25 04/02/20 07:25 04/02/20 07:25 Results 04/03/20 04:00 04/03/20 04:00
--- NOTE | 2020-04-03 14:45 | Progress Note ---
Assessment and Plan Acute asthma exacerbation -Continue scheduled nebulizer breathing treatment, and steroid -Consult pulmonary, will also rule out for COVID-19 Acute on chronic diastolic CHF - s/p lasix, 2d eho showed preserved EF - encouraged for tight BP control Hypertensive urgency, continue to monitor blood pressure every 8 hour -Resume home meds and adjust medications as needed History of coronary artery disease, continue home meds History of carotid stenosis status post prior right CEA -Continue aspirin and statin Prior CVA with right-sided hemiparesis, continue aspirin and statin Morbid obesity, weight reduction diet recommendation when clinically stable DVT prophylaxis, Lovenox 04/03: 2D echo showed preserved EF, consult pulmonary for possible asthma exacerbation. Continue current management and plan. Rule out for COVID-19. Subjective Date of service: 04/03/20 Interval history: Patient seen and examined. Medical records and medication list reviewed. No acute event overnight noted by the RN. Patient c/o difficulty breathing on resting. Patient is tolerating diet. pending COVID 19 Discussed plan of care at bedside with patient. Objective - Exam Narrative Exam: GENERAL: well-developed and morbidly obese AAF with a wound lying on bed appeared to be in no discomfort. HEENT: Normocephalic. Atraumatic. No conjunctival congestion or icterus. Patient has moist mucous membranes. NECK: Supple. Trachea midline. CHEST/LUNGS: wheezes auscultated bilaterally, breathing nonlabored. No crackles or rhonchi. HEART/CARDIOVASCULAR: Regular in rate and rhythm. S1 and S2 positive. ABDOMEN: Abdomen is soft, nontender. Patient has normal bowel sounds. SKIN: There is no rash. Warm and dry. NEURO: right sided hameparesis. Follows command. MUSCULOSKELETAL: No joint effusion or tenderness. EXTRIMITY: No edema, no cyanosis or clubbing. PSYCH: Cooperative. - Constitutional Vitals: Vital Signs - 12hr 04/03/20 04/03/20 04/03/20 04:15 04:35 07:44 Temperature 97.3 F L 97.8 F Pulse Rate 83 80 78 Respiratory 20 18 Rate Blood Pressure 133/61 146/64 O2 Sat by Pulse 98 100 Oximetry 04/03/20 04/03/20 04/03/20 10:40 10:41 12:00 Temperature 96.8 F L Pulse Rate 78 78 83 Respiratory 18 Rate Blood Pressure 146/64 146/64 149/61 O2 Sat by Pulse 100 Oximetry - Labs CBC & Chem 7: 04/03/20 04:00 04/03/20 04:00 Labs: Abnormal lab results 04/02/20 04/02/20 04/02/20 Range/Units 14:17 14:17 18:23 RBC (3.65-5.03) M/mm3 Hgb (10.1-14.3) gm/dl Hct (30.3-42.9) % Lymph % (Auto) (13.4-35.0) % Lymph # (Auto) (1.2-5.4) K/mm3 Seg Neutrophils % (40.0-70.0) % Chloride (98-107) mmol/L Carbon Dioxide (22-30) mmol/L BUN 19 H (7-17) mg/dL Glucose (65-100) mg/dL POC Glucose 206 H (70-105) mg/dL NT-Pro-B Natriuret Pep 1391 H (0-900) pg/mL Albumin 3.6 L (3.9-5) g/dL 04/02/20 04/03/20 04/03/20 Range/Units 22:13 04:00 04:00 RBC 3.18 L (3.65-5.03) M/mm3 Hgb 9.0 L (10.1-14.3) gm/dl Hct 27.4 L (30.3-42.9) % Lymph % (Auto) 12.5 L (13.4-35.0) % Lymph # (Auto) 1.1 L (1.2-5.4) K/mm3 Seg Neutrophils % 81.7 H (40.0-70.0) % Chloride 97.5 L (98-107) mmol/L Carbon Dioxide 33 H (22-30) mmol/L BUN 22 H (7-17) mg/dL Glucose 208 H (65-100) mg/dL POC Glucose 308 H (70-105) mg/dL NT-Pro-B Natriuret Pep (0-900) pg/mL Albumin (3.9-5) g/dL HEART Score - HEART Score Troponin: Troponin T < 0.010 ng/mL (0.00-0.029) 04/02/20 14:17
[2020-04-03] MEDS: predniSONE 20 MG TAB PO SCH (18:54)
[2020-04-03] MEDS: ALBUTEROL 2.5 MG/3 ML NEBU IH SCH ×2 (20:40→21:45)
[2020-04-03] MEDS: PRAVASTATIN 20 MG TAB PO SCH (22:11)
[2020-04-03] MEDS: INSULIN GLARGINE 100 UNITS/ML SUB-Q SCH (22:12)
[2020-04-03 22:43] LABS: Amphetamine Screen,Urine Negative; Benzodiazepines Screen,Urine Negative; Cannabinoid Screen,Urine Negative; Cocaine Screen,Urine Negative; Methadone Screen,Urine Negative; Opiate Screen,Urine Negative
[2020-04-04] MEDS: ALBUTEROL 2.5 MG/3 ML NEBU IH SCH ×5 (01:00→21:52)
[2020-04-04] MEDS: ASPIRIN 325 MG TAB PO SCH (09:07)
[2020-04-04] MEDS: carvediloL 12.5 MG TAB PO SCH ×2 (09:07→21:52)
[2020-04-04] MEDS: PANTOPRAZOLE 20 MG TAB PO SCH (09:07)
[2020-04-04] MEDS: CLOPIDOGREL 75 MG TAB PO SCH (09:07)
[2020-04-04] MEDS: SERTRALINE 25 MG TAB PO SCH (09:07)
[2020-04-04] MEDS: FERROUS SULFATE 325 MG TAB PO SCH (09:07)
[2020-04-04] MEDS: predniSONE 20 MG TAB PO SCH (09:08)
[2020-04-04] MEDS: amLODIPine 10 MG TAB PO SCH (09:08)
[2020-04-04] MEDS: LISINOPRIL 20 MG TAB PO SCH (09:08)
--- NOTE | 2020-04-04 09:38 | Progress Note ---
<ANGELICA HINOJOSA - Last Filed: 04/04/20 09:38> Assessment and Plan Shortness of breath with active wheezing and cough echo this presentation reports normal LVEF 55-60% Hx of CAD Hx of Carotid disease with prior right CEA Essential Hypertension Prior CVA Recommendations: Continue medical therapy for coronary artery disease. Defer to pulmonary and primary team for management of the patient's shortness of breath, wheezing and cough. Subjective Date of service: 04/04/20 Interval history: Patient reports her breathing is improving. Denies chest pain and denies palpitations. Objective Vital Signs Temp Pulse Pulse Pulse Resp Resp BP 04/04/20 09:08 75 161/61 04/04/20 09:07 75 161/61 04/04/20 08:56 84 20 04/04/20 08:27 98.4 F 75 161/61 04/04/20 03:39 96.9 F L 84 20 152/66 04/04/20 03:32 72 18 04/04/20 00:24 98.1 F 84 18 150/59 04/03/20 22:20 81 18 04/03/20 22:11 81 134/55 04/03/20 22:00 04/03/20 20:54 78 04/03/20 20:05 98.1 F 78 18 134/55 04/03/20 16:56 94 H 17 174/69 04/03/20 15:33 98.5 F 74 18 123/47 04/03/20 12:00 96.8 F L 83 18 149/61 04/03/20 10:41 78 146/64 04/03/20 10:40 78 146/64 Pulse Ox 04/04/20 09:08 04/04/20 09:07 04/04/20 08:56 04/04/20 08:27 94 04/04/20 03:39 97 04/04/20 03:32 04/04/20 00:24 97 04/03/20 22:20 99 04/03/20 22:11 04/03/20 22:00 99 04/03/20 20:54 04/03/20 20:05 96 04/03/20 16:56 04/03/20 15:33 99 04/03/20 12:00 100 04/03/20 10:41 04/03/20 10:40 - Physical Examination General: No Apparent Distress HEENT: Positive: PERRL Neck: Positive: trachea midline Cardiac: Positive: Reg Rate and Rhythm Lungs: Positive: Decreased Breath Sounds Neuro: Positive: Weakness (with right sided residual) Extremities: Absent: edema <SHERICE ANDRADE Last Filed: 04/04/20 12:40> Subjective Interval history: I SAW THIS PT & AGREE WITH THE Dx & Tx PLAN. Objective Vital Signs Temp Pulse Pulse Pulse Resp Resp BP 04/04/20 09:08 75 161/61 04/04/20 09:07 75 161/61 04/04/20 08:56 84 20 04/04/20 08:27 98.4 F 75 161/61 04/04/20 03:39 96.9 F L 84 20 152/66 04/04/20 03:32 72 18 04/04/20 00:24 98.1 F 84 18 150/59 04/03/20 22:20 81 18 04/03/20 22:11 81 134/55 04/03/20 22:00 04/03/20 20:54 78 04/03/20 20:05 98.1 F 78 18 134/55 04/03/20 16:56 94 H 17 174/69 04/03/20 15:33 98.5 F 74 18 123/47 Pulse Ox 04/04/20 09:08 04/04/20 09:07 04/04/20 08:56 04/04/20 08:27 94 04/04/20 03:39 97 04/04/20 03:32 04/04/20 00:24 97 04/03/20 22:20 99 04/03/20 22:11 04/03/20 22:00 99 04/03/20 20:54 04/03/20 20:05 96 04/03/20 16:56 04/03/20 15:33 99
--- NOTE | 2020-04-04 14:04 | Consultation ---
History of Present Illness Consult date: 04/04/20 Past History Past Medical History: CAD, diabetes, hypertension, stroke Past Surgical History: hysterectomy Social history: . denies: smoking, alcohol abuse Family history: diabetes, hypertension Medications and Allergies Allergies Allergy/AdvReac Type Severity Reaction Status Date / Time codeine Allergy Intermediate Itching Verified 04/02/20 07:20 Home Medications Medication Instructions Recorded Confirmed Last Taken Type Aspirin 81 mg PO DAILY 07/04/14 04/02/20 04/01/20 History Furosemide [Lasix TAB] 20 mg PO DAILY 07/04/14 04/02/20 04/01/20 History Metformin HCl [metFORMIN ER] 500 mg PO BID 07/04/14 04/02/20 04/01/20 History Omeprazole [PriLOSEC] 40 mg PO DAILY 07/04/14 04/02/20 04/01/20 History Sertraline [Zoloft] 25 mg PO DAILY 07/04/14 04/02/20 04/01/20 History carvediloL [Coreg] 12.5 mg PO BID 07/04/14 04/02/20 04/01/20 History glipiZIDE [glipiZIDE XL] 10 mg PO DAILY 07/04/14 04/02/20 04/01/20 History lisinopriL [Lisinopril] 20 mg PO BID 07/08/14 04/02/20 04/01/20 History Ferrous Sulfate [Iron 325 MG] 325 mg PO DAILY 04/02/20 04/02/20 04/01/20 History Insulin Glargine [Lantus VIAL] 24 unit SUB-Q QHS 04/02/20 04/02/20 04/01/20 History Mirabegron [Myrbetriq] 50 mg PO QDAY 04/02/20 04/02/20 04/01/20 History amLODIPine [Norvasc] 10 mg PO DAILY 04/02/20 04/02/20 Unknown History Active Meds: Active Medications Acetaminophen (Tylenol) 650 mg PO Q4H PRN PRN Reason: Pain MILD(1-3)/Fever >100.5/GREY Hydrocodone Bitart/Acetaminophen ([place] 7.5/325) 1 each PO Q6HR PRN PRN Reason: Pain, Moderate (4-6) Last Admin: 04/02/20 22:26 Dose: 1 each Documented by: Albuterol (Albuterol 2.5 Mg/3 Ml Nebu) 2.5 mg IH Q6HRT [facility] Last Admin: 04/04/20 08:56 Dose: 2.5 mg Documented by: Amlodipine Besylate (Amlodipine) 10 mg PO DAILY [facility] Last Admin: 04/04/20 09:08 Dose: 10 mg Documented by: Aspirin (Aspirin) 325 mg PO DAILY [facility] Last Admin: 04/04/20 09:07 Dose: 325 mg Documented by: Carvedilol (Coreg) 12.5 mg PO BID [facility] Last Admin: 04/04/20 09:07 Dose: 12.5 mg Documented by: Clopidogrel Bisulfate (Plavix) 75 mg PO DAILY [facility] Last Admin: 04/04/20 09:07 Dose: 75 mg Documented by: Ferrous Sulfate (Feosol) 325 mg PO DAILY [facility] Last Admin: 04/04/20 09:07 Dose: 325 mg Documented by: Insulin Glargine (Lantus) 24 units SUB-Q QHS [facility] Last Admin: 04/03/20 22:12 Dose: 24 units Documented by: Lisinopril (Zestril) 20 mg PO QDAY [facility] Last Admin: 04/04/20 09:08 Dose: 20 mg Documented by: Miscellaneous Medication (Fesoterodine Fumarate [Toviaz]) 4 mg PO DAILY [facility] Miscellaneous Medication (Mirabegron [Myrbetriq]) 50 mg PO QDAY [facility] Ondansetron HCl (Zofran) 4 mg IV Q8H PRN PRN Reason: Nausea And Vomiting Pantoprazole Sodium (Pantoprazole 20 Mg Tab) 20 mg PO QDAC [facility] Pravastatin Sodium (Pravachol) 10 mg PO QHS [facility] Last Admin: 04/03/20 22:11 Dose: 10 mg Documented by: Prednisone (Prednisone 20 Mg Tab) 40 mg PO QDAY [facility] Last Admin: 04/04/20 09:08 Dose: 40 mg Documented by: Sertraline HCl (Zoloft) 25 mg PO DAILY [facility] Last Admin: 04/04/20 09:07 Dose: 25 mg Documented by: Sodium Chloride (Sodium Chloride Flush Syringe 10 Ml) 10 ml IV BID [facility] Last Admin: 04/04/20 09:09 Dose: 10 ml Documented by: Sodium Chloride (Sodium Chloride Flush Syringe 10 Ml) 10 ml IV PRN PRN PRN Reason: LINE FLUSH Physical Examination Vital signs: Vital Signs Pulse Resp BP Pulse Ox 92 H 24 188/81 95 04/02/20 07:25 04/02/20 07:25 04/02/20 07:25 04/02/20 07:25 Results - Laboratory Findings CBC and BMP: 04/03/20 04:00 04/03/20 04:00 Abnormal lab findings: Abnormal Labs 04/02/20 04/02/20 04/02/20 11:48 14:17 14:17 RBC 3.53 L Hgb 10.0 L Hct Lymph % (Auto) [place] % (Auto) 9.2 H Lymph # (Auto) Seg Neutrophils % 73.4 H Chloride Carbon Dioxide BUN 19 H Glucose POC Glucose NT-Pro-B Natriuret Pep 1391 H Albumin 3.6 L 04/02/20 04/02/20 04/03/20 18:23 22:13 04:00 RBC 3.18 L Hgb 9.0 L Hct 27.4 L Lymph % (Auto) 12.5 L [place] % (Auto) Lymph # (Auto) 1.1 L Seg Neutrophils % 81.7 H Chloride Carbon Dioxide BUN Glucose POC Glucose 206 H 308 H NT-Pro-B Natriuret Pep Albumin 04/03/20 04/03/20 04/04/20 04:00 21:25 09:38 RBC Hgb Hct Lymph % (Auto) [place] % (Auto) Lymph # (Auto) Seg Neutrophils % Chloride 97.5 L Carbon Dioxide 33 H BUN 22 H Glucose 208 H POC Glucose 182 H 290 H NT-Pro-B Natriuret Pep Albumin 04/04/20 12:24 RBC Hgb Hct Lymph % (Auto) [place] % (Auto) Lymph # (Auto) Seg Neutrophils % Chloride Carbon Dioxide BUN Glucose POC Glucose 278 H NT-Pro-B Natriuret Pep Albumin
--- NOTE | 2020-04-04 16:22 | Progress Note ---
Assessment and Plan Acute asthma exacerbation -Continue scheduled nebulizer breathing treatment, and steroid -Consulted pulmonary, negative for COVID-19 Acute on chronic diastolic CHF - s/p lasix, 2d eho showed preserved EF - encouraged for tight BP control Hypertensive urgency, continue to monitor blood pressure every 8 hour -Resumed home meds and adjust medications as needed History of coronary artery disease, continue home meds History of carotid stenosis status post prior right CEA -Continue aspirin and statin Prior CVA with right-sided hemiparesis, continue aspirin and statin Morbid obesity, weight reduction diet recommendation when clinically stable DVT prophylaxis, Lovenox 04/03: 2D echo showed preserved EF, consult pulmonary for possible asthma exacerbation. Continue current management and plan. Rule out for COVID-19 04/04: negative for COVID. cont to treat for asthma and bronchitis, follow pulmonary recommendation. if clinically stable possible d/c in the am Subjective Date of service: 04/04/20 Interval history: Patient seen and examined. Medical records and medication list reviewed. No acute event overnight noted by the RN. Patient c/o difficulty breathing on resting. Patient is tolerating diet. negative for COVID 19 Discussed plan of care at bedside with patient. Objective - Exam Narrative Exam: GENERAL: well-developed and morbidly obese AAF with a wound lying on bed dolly eared to be in no discomfort. HEENT: Normocephalic. Atraumatic. No conjunctival congestion or icterus. Patient has moist mucous membranes. NECK: Supple. Trachea midline. CHEST/LUNGS: few wheezes auscultated bilaterally, breathing nonlabored. No crackles or rhonchi. HEART/CARDIOVASCULAR: Regular in rate and rhythm. S1 and S2 positive. ABDOMEN: Abdomen is soft, nontender. Patient has normal bowel sounds. SKIN: There is no rash. Warm and dry. NEURO: right sided hameparesis. Follows command. MUSCULOSKELETAL: No joint effusion or tenderness. EXTRIMITY: No edema, no cyanosis or clubbing. PSYCH: Cooperative. - Constitutional Vitals: Vital Signs - 12hr 04/04/20 04/04/20 04/04/20 08:27 08:56 09:07 Temperature 98.4 F Pulse Rate 75 75 Pulse Rate [ 84 Bilateral Throughout] Respiratory Rate Respiratory 20 Rate [Bilateral Throughout] Blood Pressure 161/61 161/61 O2 Sat by Pulse 94 Oximetry 04/04/20 04/04/20 09:08 11:34 Temperature 98.3 F Pulse Rate 75 67 Pulse Rate [ Bilateral Throughout] Respiratory 20 Rate Respiratory Rate [Bilateral Throughout] Blood Pressure 161/61 146/53 O2 Sat by Pulse 100 Oximetry - Labs CBC & Chem 7: 04/03/20 04:00 04/03/20 04:00 Labs: Abnormal lab results 04/03/20 04/04/20 04/04/20 Range/Units 21:25 09:38 12:24 POC Glucose 182 H 290 H 278 H (70-105) mg/dL 04/04/20 Range/Units 15:57 POC Glucose 259 H (70-105) mg/dL HEART Score - HEART Score Troponin: Troponin T < 0.010 ng/mL (0.00-0.029) 04/02/20 14:17
[2020-04-04] MEDS ORDERED: AZITHROMYCIN 500 MG in SODIUM CHLORIDE 0.9% 250ML 250 ML IV SCH (17:00)
[2020-04-04] MEDS: PRAVASTATIN 20 MG TAB PO SCH (21:52)
[2020-04-04] MEDS: INSULIN GLARGINE 100 UNITS/ML SUB-Q SCH (21:53)
[2020-04-05] MEDS ORDERED: PANTOPRAZOLE 20 MG TAB PO SCH (07:30)
--- NOTE | 2020-04-05 08:31 | Progress Note ---
Assessment and Plan Shortness of breath with active wheezing and cough echo this presentation reports normal LVEF 55-60% Hx of CAD Hx of Carotid disease with prior right CEA Essential Hypertension Prior CVA Recommendations: Continue medical therapy for coronary artery disease. No further inpatient cardiac management is needed Patient can follow-up as outpatient Subjective Date of service: 04/05/20 Principal diagnosis: SOB Interval history: Patient states that her shortness of breath has improved. She is not on oxygen this morning. No events on tele Objective Vital Signs Temp Pulse Pulse Pulse Resp Resp BP 04/05/20 04:55 97.5 F L 66 16 125/44 04/04/20 23:37 98.3 F 77 16 147/62 04/04/20 21:56 04/04/20 21:54 04/04/20 21:52 79 143/51 04/04/20 20:22 98.6 F 79 18 143/51 04/04/20 20:14 74 18 04/04/20 20:00 77 18 04/04/20 19:57 80 04/04/20 15:57 98.9 F 74 20 140/68 04/04/20 11:34 98.3 F 67 20 146/53 04/04/20 09:08 75 161/61 04/04/20 09:07 75 161/61 04/04/20 08:56 84 20 Pulse Ox 04/05/20 04:55 96 04/04/20 23:37 100 04/04/20 21:56 100 04/04/20 21:54 100 04/04/20 21:52 04/04/20 20:22 100 04/04/20 20:14 98 04/04/20 20:00 04/04/20 19:57 04/04/20 15:57 99 04/04/20 11:34 100 04/04/20 09:08 04/04/20 09:07 04/04/20 08:56 100 - Physical Examination General: No Apparent Distress HEENT: Positive: PERRL Neck: Positive: trachea midline Cardiac: Positive: Reg Rate and Rhythm Lungs: Positive: Normal Exam Neuro: Positive: Weakness (with right sided residual) Extremities: Absent: edema
[2020-04-05] MEDS: HYDROcodone/ACETAMINOPHEN 7.5-325MG TAB PO PRN (09:10)
[2020-04-05] MEDS: amLODIPine 10 MG TAB PO SCH (09:33)
[2020-04-05] MEDS: FERROUS SULFATE 325 MG TAB PO SCH (09:33)
[2020-04-05] MEDS: SERTRALINE 25 MG TAB PO SCH (09:34)
[2020-04-05] MEDS: CLOPIDOGREL 75 MG TAB PO SCH (09:34)
[2020-04-05] MEDS: predniSONE 20 MG TAB PO SCH (09:34)
[2020-04-05] MEDS: LISINOPRIL 20 MG TAB PO SCH (09:34)
[2020-04-05] MEDS: carvediloL 12.5 MG TAB PO SCH (09:34)
[2020-04-05] MEDS: ASPIRIN 325 MG TAB PO SCH (09:34)
[2020-04-05] MEDS ORDERED: AZITHROMYCIN 250 MG TAB PO SCH (11:00)
--- NOTE | 2020-04-05 16:17 | Discharge Summary ---
Providers - Providers Date of Admission: 04/02/20 16:29 Date of discharge: 04/05/20 Attending physician: JAZMYN ALLEN 04/02/20 16:28 Consult to Physician [CONS] Routine Comment: Consulting Provider: SHERICE ANDRADE Physician Instructions: Reason For Exam: chf 04/03/20 14:55 Consult to Physician [CONS] Routine Comment: Consulting Provider: TAY RIBERA Physician Instructions: Reason For Exam: possible asthma 04/04/20 08:54 Occupational Therapy Evaluate and Treat [CONS] Routine Comment: Reason For Exam: debility Physical Therapy Evaluation and Treat [CONS] Routine Comment: Reason For Exam: debility Date of last referral: 04/04/20 Primary care physician: NANO HARRISON MD Hospitalization Condition: Fair Pertinent studies: CXR 2d echo Hospital course: Discharge diagnosis: Acute asthma exacerbation -Continue scheduled nebulizer breathing treatment, and steroid -Consulted pulmonary, negative for COVID-19 Acute on chronic diastolic CHF - s/p lasix, 2d eho showed preserved EF - encouraged for tight BP control Hypertensive urgency, continue to monitor blood pressure every 8 hour -Resumed home meds and adjust medications as needed History of coronary artery disease, continue home meds History of carotid stenosis status post prior right CEA -Continue aspirin and statin Prior CVA with right-sided hemiparesis, continue aspirin and statin Morbid obesity, weight reduction diet recommendation when clinically stable DVT prophylaxis, Lovenox 04/03: 2D echo showed preserved EF, consult pulmonary for possible asthma exacerbation. Continue current management and plan. Rule out for COVID-19 04/04: negative for COVID. cont to treat for asthma and bronchitis, follow pulmonary recommendation. if clinically stable possible d/c in the am 04/05: clinically stable, d/c home with PT Disposition: DC/[place]-06 HOME [facility] Time spent for discharge: 34 minutes Core Measure Documentation - Palliative Care Palliative Care/ Comfort Measures: Not Applicable - Core Measures Any of the following diagnoses?: none Exam - Physical Exam Narrative exam: GENERAL: well-developed and morbidly obese AAF with a wound lying on bed appeared to be in no discomfort. HEENT: Normocephalic. Atraumatic. No conjunctival congestion or icterus. Patient has moist mucous membranes. NECK: Supple. Trachea midline. CHEST/LUNGS: no wheezes auscultated bilaterally, breathing nonlabored. No crackles or rhonchi. HEART/CARDIOVASCULAR: Regular in rate and rhythm. S1 and S2 positive. ABDOMEN: Abdomen is soft, nontender. Patient has normal bowel sounds. SKIN: There is no rash. Warm and dry. NEURO: right sided hameparesis. Follows command. MUSCULOSKELETAL: No joint effusion or tenderness. EXTRIMITY: No edema, no cyanosis or clubbing. PSYCH: Cooperative. - Constitutional Vitals: Temp Pulse Resp BP Pulse Ox 99.0 F 68 16 166/58 96 04/05/20 11:43 04/05/20 11:43 04/05/20 11:43 04/05/20 11:43 04/05/20 11:43 Plan Activity: fall precautions Weight Bearing Status: Non-Weight Bearing Diet: low fat, low salt Special Instructions: record daily BP diary Follow up with: NANO HARRISON MD [Primary Care Provider] - 7 Days Prescriptions: Prednisone [predniSONE 5 mg (6-Day Pack, 21 Tabs)] 5 mg PO .TAPER #1 tab.ds.pk Albuterol Mdi (or & Nicu Only) [ProAir HFA Inhaler] 2 puff IH QID PRN #8.5 gram PRN Reason: Shortness Of Breath Azithromycin [Zithromax TAB] 500 mg PO QDAY #4 tablet
[2020-04-05 18:19] VITALS: BP 175/70
== END 2020-04-05 19:27 | disposition home health service (06) | DRG 304 ==
LOC: ED 07:10 → 4A 16:29
PROVIDERS: ADMIT Internal Medicine; ATTEND Internal Medicine
DX: I16.0 Hypertensive urgency (principal); I50.33 Acute on chronic diastolic (congestive) heart failure; E66.2 Morbid (severe) obesity with alveolar hypoventilation; J45.901 Unspecified asthma with (acute) exacerbation; I69.951 Hemiplegia and hemiparesis following unspecified cerebrovascular disease affecting right dominant side; Z68.41 Body mass index [BMI] 40.0-44.9, adult; I11.0 Hypertensive heart disease with heart failure; I25.10 Atherosclerotic heart disease of native coronary artery without angina pectoris; E11.9 Type 2 diabetes mellitus without complications; Z20.828 Contact with and (suspected) exposure to other viral communicable diseases; K21.9 Gastro-esophageal reflux disease without esophagitis; Z90.710 Acquired absence of both cervix and uterus; Z79.82 Long term (current) use of aspirin; Z83.3 Family history of diabetes mellitus; Z82.49 Family history of ischemic heart disease and other diseases of the circulatory system; Z88.5 Allergy status to narcotic agent; Z79.899 Other long term (current) drug therapy
CPT/HCPCS: 36415; 71046; 80048; 80053; 80307; 82962; 83880; 84484; 85025; 93005; 93306; 94640; 94760; 96374; 96375; G0378; A9270-GY; J0360; J0456; J1815; J1940; J2405; J2930; J7050; J7512; U0003

== ENCOUNTER 2021-03-08 17:36 | Emergency (ER) | payer MEDICARE, OTHER ==
[2021-03-08 17:53] VITALS: BP 173/67
[2021-03-08] MEDS ORDERED: IPRATROPIUM 0.02% NEBU 2.5 ML IH ONE (18:03)
[2021-03-08] MEDS ORDERED: ALBUTEROL 2.5 MG/3 ML NEBU IH ONE (18:03)
--- NOTE | 2021-03-08 18:03 | Emergency Department Report ---
ED Shortness of Breath HPI - General Chief Complaint: Dyspnea/Respdistress Stated Complaint: SOB WHEEZING Time Seen by Provider: 03/08/21 17:55 Source: patient, family Mode of arrival: Wheelchair Limitations: Physical Limitation - History of Present Illness Initial Comments: Patient presents secondary shortness of breath. For the last several weeks she has had trouble breathing. Over the last couple of days she has had a productive cough with whitish phlegm. They did a televisit with their primary care physician who suggested that they get a test for coronavirus. The family decided to come here for testing. She states that she is also concerned that she could have pneumonia. The reports that she has had numerous upper respiratory infections. He does not know what is causing her symptoms today. She does have a history of asthma and lung disease. She is never been intubated before. She has been using inhalers at home. Her doctor gave her steroids Tuesday. She just tarted taking them yesterday. There is no pain or swelling in the legs out of the ordinary. She does not have orthopnea. She has no chest pain. There has been no fever or chills reported. She has had no known sick contacts. - Related Data Home Medications Medication Instructions Recorded Confirmed Last Taken Aspirin 81 mg PO DAILY 07/04/14 04/02/20 04/01/20 Furosemide [Lasix TAB] 20 mg PO DAILY 07/04/14 04/02/20 04/01/20 Metformin HCl [metFORMIN ER] 500 mg PO BID 07/04/14 04/02/20 04/01/20 Omeprazole [PriLOSEC] 40 mg PO DAILY 07/04/14 04/02/20 04/01/20 Sertraline [Zoloft] 25 mg PO DAILY 07/04/14 04/02/20 04/01/20 carvediloL [Coreg] 12.5 mg PO BID 07/04/14 04/02/20 04/01/20 glipiZIDE [glipiZIDE XL] 10 mg PO DAILY 07/04/14 04/02/20 04/01/20 lisinopriL [Lisinopril] 20 mg PO BID 07/08/14 04/02/20 04/01/20 Ferrous Sulfate [Iron 325 MG] 325 mg PO DAILY 04/02/20 04/02/20 04/01/20 Insulin Glargine [Lantus VIAL] 24 unit SUB-Q QHS 04/02/20 04/02/20 04/01/20 Mirabegron [Myrbetriq] 50 mg PO QDAY 04/02/20 04/02/20 04/01/20 amLODIPine 10 mg PO DAILY 04/02/20 04/02/20 Unknown Previous Rx's Medication Instructions Recorded Last Taken Type Albuterol Mdi (or & Nicu Only) 2 puff IH QID PRN #8.5 gram 04/05/20 Unknown Rx [ProAir HFA Inhaler] Azithromycin [Zithromax TAB] 500 mg PO QDAY #4 tablet 04/05/20 Unknown Rx Prednisone [predniSONE 5 mg (6-Day 5 mg PO .TAPER #1 tab.ds.pk 04/05/20 Unknown Rx Pack, 21 Tabs)] Benzonatate [Tessalon Perles] 100 mg PO Q8HR #20 capsule 03/08/21 Unknown Rx Allergies Allergy/AdvReac Type Severity Reaction Status Date / Time codeine Allergy Intermediate Itching Verified 04/02/20 07:20 ED Review of Systems ROS: Stated complaint: SOB WHEEZING Other details as noted in HPI Comment: All other systems reviewed and negative Constitutional: denies: fever Eyes: denies: eye pain ENT: denies: throat pain Respiratory: see HPI Cardiovascular: denies: chest pain Endocrine: denies: unexplained weight loss Gastrointestinal: denies: abdominal pain Genitourinary: denies: dysuria Musculoskeletal: denies: back pain Skin: denies: rash Neurological: denies: headache Hematological/Lymphatic: denies: easy bruising ED Past Medical Hx - Past Medical History Previous Medical History?: Yes Hx Hypertension: Yes Hx CVA: Yes (Rt arm and leg weakness, speech impairment) Hx Heart Attack/AMI: No Hx Congestive Heart Failure: No Hx Diabetes: Yes Hx Deep Vein Thrombosis: No Hx Pulmonary Embolism: No Hx GERD: Yes Hx Liver Disease: No Hx Renal Disease: No Hx Sickle Cell Disease: No Hx Arthritis: No Hx Seizures: No Hx Kidney Stones: No Hx Asthma: No Hx COPD: No Hx Tuberculosis: No Hx Dementia: No Hx HIV: No - Surgical History Hx Coronary Stent: Yes (X2) Hx Open Heart Surgery: No Hx Pacemaker: No Hx Internal Defibrillator: No Hx Cholecystectomy: No Hx Appendectomy: No Hx Breast Surgery: No Additional Surgical History: Hysterectomy - Family History Family history: hypertension - Social History Smoking Status: Former Smoker - Medications Home Medications: Home Medications Medication Instructions Recorded Confirmed Last Taken Type Aspirin 81 mg PO DAILY 07/04/14 04/02/20 04/01/20 History Furosemide [Lasix TAB] 20 mg PO DAILY 07/04/14 04/02/20 04/01/20 History Metformin HCl [metFORMIN ER] 500 mg PO BID 07/04/14 04/02/20 04/01/20 History Omeprazole [PriLOSEC] 40 mg PO DAILY 07/04/14 04/02/20 04/01/20 History Sertraline [Zoloft] 25 mg PO DAILY 07/04/14 04/02/20 04/01/20 History carvediloL [Coreg] 12.5 mg PO BID 07/04/14 04/02/20 04/01/20 History glipiZIDE [glipiZIDE XL] 10 mg PO DAILY 07/04/14 04/02/20 04/01/20 History lisinopriL [Lisinopril] 20 mg PO BID 07/08/14 04/02/20 04/01/20 History Ferrous Sulfate [Iron 325 MG] 325 mg PO DAILY 04/02/20 04/02/20 04/01/20 History Insulin Glargine [Lantus VIAL] 24 unit SUB-Q QHS 04/02/20 04/02/20 04/01/20 History Mirabegron [Myrbetriq] 50 mg PO QDAY 04/02/20 04/02/20 04/01/20 History amLODIPine 10 mg PO DAILY 04/02/20 04/02/20 Unknown History Albuterol Mdi (or & Nicu Only) 2 puff IH QID PRN #8.5 gram 04/05/20 Unknown Rx [ProAir HFA Inhaler] Azithromycin [Zithromax TAB] 500 mg PO QDAY #4 tablet 04/05/20 Unknown Rx Prednisone [predniSONE 5 mg (6-Day 5 mg PO .TAPER #1 tab.ds.pk 04/05/20 Unknown Rx Pack, 21 Tabs)] Benzonatate [Tessalon Perles] 100 mg PO Q8HR #20 capsule 03/08/21 Unknown Rx ED Physical Exam - General Limitations: Physical Limitation (Prior stroke), Other General appearance: alert, in distress ( mild) - Head Head exam: Present: atraumatic, normocephalic, normal inspection - Eye Eye exam: Present: normal appearance, EOMI. Absent: scleral icterus - ENT ENT exam: Present: normal exam, normal orophraynx, normal external ear exam - Neck Neck exam: Present: normal inspection. Absent: meningismus - Respiratory Respiratory exam: Present: respiratory distress ( mild), wheezes ( bilateral) - Cardiovascular Cardiovascular Exam: Present: regular rate, normal rhythm - GI/Abdominal GI/Abdominal exam: Present: soft. Absent: tenderness - Extremities Exam Extremities exam: Present: normal capillary refill. Absent: calf tenderness - Back Exam Back exam: Absent: CVA tenderness (R), CVA tenderness (L) - Neurological Exam Neurological exam: Present: alert, oriented X3, CN II-XII intact, other ( residual deficit from prior stroke) - Psychiatric Psychiatric exam: Present: normal affect, normal mood - Skin Skin exam: Present: warm, dry ED Course Vital Signs 03/08/21 03/08/21 17:47 18:23 Temperature 98.7 F Pulse Rate 88 Pulse Rate [ 90 Bilateral Throughout] Respiratory 26 H Rate Respiratory 18 Rate [Bilateral Throughout] Blood Pressure 173/67 [Right] O2 Sat by Pulse 99 Oximetry - Reevaluation(s) Reevaluation #1: 03/08/21 18:02 Albuterol and chest x-ray were ordered Reevaluation #2: 03/08/21 19:45 chest x-ray was noted. Patient was discharged. ED Medical Decision Making - Radiology Data Radiology results: image reviewed interpreted by me: Chest x-ray based on my review reveals no evidence of pneumonia or pneumothorax. Patient does not have cardiomegaly. There is no pulmonary vascular congestion noted. She does not have findings suggestive of coronavirus. Soft tissues appear to be normal. - Medical Decision Making Patient presents with difficulty breathing. She responded well to bronchodilators. She does not appear to be septic or toxic. There is urographic evidence of pneumonia. She does not have radiographic findings suggestive of coronavirus. We have discussed outpatient management and treatment. She has steroids at home and will be continued on those. She can use bronchodilators as needed as well. Critical Care Time: No Critical care attestation.: If time is entered above; I have spent that time in minutes in the direct care of this critically ill patient, excluding procedure time. ED Disposition Clinical Impression: Acute URI Asthma exacerbation Qualifiers: Asthma severity: moderate Asthma persistence: persistent Qualified Code(s): J45.41 - Moderate persistent asthma with (acute) exacerbation Disposition: 01 HOME / SELF CARE / HOMELESS Is pt being admited?: No Condition: Stable Instructions: Viral Respiratory Infection, [id number], Cool Mist Vaporizer, Cough, Adult, [id number], Asthma, Adult, [id number] Additional Instructions: Push fluids. Continue home medication. Return for problems. Follow-up as directed by your regular physician. Take the steroids. Prescriptions: Benzonatate [Tessalon Perles] 100 mg PO Q8HR #20 capsule Referrals: PRIMARY CARE, [Referring] - 3-5 Days
--- NOTE | 2021-03-08 20:30 | XRay Report ---
XR chest routine 2V INDICATION / CLINICAL INFORMATION: dyspnea. COMPARISON: 04/02/2020 FINDINGS: SUPPORT DEVICES: None. HEART /PULMONARY VASCULATURE: No significant abnormality. LUNGS / PLEURA: No significant pulmonary or pleural abnormality. No pneumothorax. ADDITIONAL FINDINGS: No significant additional findings. IMPRESSION: 1. No acute findings. Signer Name: Jas Tinajero MD Signed: 03/08/2021 8:26 PM Workstation Name: [id number]
== END 2021-03-08 20:48 | disposition home or self-care (01) ==
LOC: ED 17:36
DX: J06.9 Acute upper respiratory infection, unspecified (principal); J45.901 Unspecified asthma with (acute) exacerbation; I10 Essential (primary) hypertension; E11.9 Type 2 diabetes mellitus without complications; K21.9 Gastro-esophageal reflux disease without esophagitis; Z88.5 Allergy status to narcotic agent; Z79.899 Other long term (current) drug therapy
CPT/HCPCS: 71046; 94640; 94644; 99283